=== PATIENT | female | born 1960 | race Two or more races ===

== ENCOUNTER 2018-02-03 12:42 | Outpatient (CLI) | payer OTHER ==
[~2018-02-03 12:42] MED LIST: METFORMIN HYDRO25 GM PO
== END 2018-02-03 15:12 | disposition home or self-care (01) ==
LOC: TOM 12:42
DX: Z12.31 Encounter for screening mammogram for malignant neoplasm of breast (principal); C50.911 Malignant neoplasm of unspecified site of right female breast; C50.912 Malignant neoplasm of unspecified site of left female breast; R19.00 Intra-abdominal and pelvic swelling, mass and lump, unspecified site

== ENCOUNTER 2018-10-05 15:19 | Outpatient (CLI) | payer OTHER | END 2018-10-05 15:23 | disposition home or self-care (01) | LOC: RAD 15:19 | DX: M25.511 Pain in right shoulder (principal) ==

== ENCOUNTER 2018-11-02 09:44 | Outpatient (CLI) | payer OTHER | END 2018-11-02 09:51 | disposition home or self-care (01) | LOC: SONOGRAMA 09:44 | DX: M25.511 Pain in right shoulder (principal) ==

== ENCOUNTER → 2018-11-02 | Outpatient (CLI) | payer OTHER | END | disposition home or self-care (01) | LOC: NUCLEAR 10:00 | DX: M81.0 Age-related osteoporosis without current pathological fracture (principal) ==